=== PATIENT | male | born 1985 | race Caucasian/White ===

== ENCOUNTER 2021-06-02 09:47 | Emergency (ER) | payer BC ==
[~2021-06-02] VITALS: Ht 160 cm; Wt 68.2 kg
[2021-06-02 09:58] VITALS: BP 107/78
[2021-06-02] MEDS ORDERED: TETanus/Pertussis (Acell)/Diphther VAC/PF (Tdap-Adult) 0.5ml syringe IMVAC ONE (11:40)
== END 2021-06-02 12:22 | disposition home or self-care (01) ==
LOC: ER 09:48
DX: S61.213A Laceration without foreign body of left middle finger without damage to nail, initial encounter (principal); Z20.3 Contact with and (suspected) exposure to rabies; X58.XXXA Exposure to other specified factors, initial encounter; Y93.89 Activity, other specified; Y92.89 Other specified places as the place of occurrence of the external cause; Y99.8 Other external cause status
CPT/HCPCS: 12001; 90471; 90715; 99283